=== PATIENT | female | born 1975 | race Caucasian/White ===

== ENCOUNTER 2017-04-04 15:17 | Emergency (ER) | payer MEDICAID, OTHER, SELFPAY ==
[~2017-04-04] VITALS: Ht 172.7 cm; Wt 65.0 kg
[2017-04-04 15:20] VITALS: BP 134/85
[2017-04-04] MEDS ORDERED: SODIUM CHLORIDE 0.9% 1,000ML IVBOLUS ONE (16:30)
[2017-04-04] MEDS ORDERED: KETOROLAC 30 MG/1 ML IVPush ONE (16:30)
[2017-04-04] MEDS ORDERED: METOCLOPRAMIDE 5 MG/ML, 2ML IVPush ONE (16:30)
[2017-04-04] MEDS ORDERED: SODIUM CHLORIDE FLUSH 10ML SYR IVF ONE (16:30)
[2017-04-04] MEDS ORDERED: KETOROLAC 30 MG/1 ML ONE (16:32)
[2017-04-04] MEDS ORDERED: METOCLOPRAMIDE 5 MG/ML, 2ML ONE (16:32)
[2017-04-04 16:37] LABS: HEMATOCRIT 42.2 % (34.6-47.8); HEMOGLOBIN 14.1 g/dL (11.7-16.4); WHITE BLOOD COUNT 6.9 x10^3/uL (3.4-10)
[2017-04-04 16:44] LABS: BLOOD UREA NITROGEN 14 mg/dL (7-18)
== END 2017-04-04 18:38 | disposition home or self-care (01) ==
LOC: ED 18:35
DX: G44.219 Episodic tension-type headache, not intractable (principal)
CPT/HCPCS: 36415; 70450; 80048; 82040; 85025; 96361; 96374; 96375; 99285; J1885; J2765; J7030

== ENCOUNTER 2017-11-27 08:10 | Emergency (ER) | payer MEDICAID ==
[~2017-11-27] VITALS: Ht 172.7 cm; Wt 65.5 kg
[2017-11-27 08:12] VITALS: BP 113/72
== END 2017-11-27 09:37 | disposition home or self-care (01) ==
LOC: ED 09:31
DX: S39.012A Strain of muscle, fascia and tendon of lower back, initial encounter (principal); X58.XXXA Exposure to other specified factors, initial encounter; Y93.89 Activity, other specified; Y99.8 Other external cause status; Y92.89 Other specified places as the place of occurrence of the external cause
CPT/HCPCS: 99283

== ENCOUNTER 2018-04-03 18:53 | Emergency (ER) | payer MEDICAID ==
[~2018-04-03] VITALS: Ht 172.7 cm; Wt 68.2 kg
[2018-04-03] MEDS ORDERED: MELO15TA24 PO (19:34)
[2018-04-03] MEDS ORDERED: GABA300C10 PO (19:34)
[2018-04-03] MEDS ORDERED: TIZA4TAB PO (19:34)
[2018-04-03 20:17] LABS: ALBUMIN 3.8 g/dL (3.4-5.0); ANION GAP 9 mmol/L (5-15); CALCIUM 8.3 mg/dL (8.5-10.1); CHLORIDE 110 mmol/L (98-107); CREATININE 0.73 mg/dL (0.55-1.02)
[2018-04-03 20:42] LABS: BASOPHILS # (AUTO) 0.09 x10^3/uL (0-0.1); BASOPHILS % (AUTO) 1 % (0-1); EOSINOPHILS # (AUTO) 0.02 x10^3/uL (0-0.4); EOSINOPHILS % (AUTO) 0 % (1-7); LYMPHOCYTES # (AUTO) 2.38 x10^3/uL (1-3.4); LYMPHOCYTES % (AUTO) 33 % (22-44); MD NO; MEAN CORPUSCULAR HEMOGLOBIN 31.1 pg (27.0-34.8); MEAN CORPUSCULAR HGB CONC 34.1 g/dL (32.4-35.8); MEAN CORPUSCULAR VOLUME 91.2 fL (80-100); MEAN PLATELET VOLUME 6.7 fL (7.4-10.4); MONOCYTES # (AUTO) 0.48 x10^3/uL (0.2-0.8); MONOCYTES % (AUTO) 7 % (2-9); NEUTROPHILS # (AUTO) 4.28 x10^3/uL (1.8-6.8); NEUTROPHILS % (AUTO) 59 % (42-75); PLATELET COUNT 245 x10^3/uL (130-400); RED BLOOD COUNT 4.31 x10^6/uL (3.82-5.3); RED CELL DISTRIBUTION WIDTH 13.3 % (9.6-15.2)
[2018-04-03 21:04] VITALS: BP 107/64
== END 2018-04-03 22:00 | disposition home or self-care (01) ==
LOC: ED 21:29
DX: M51.16 Intervertebral disc disorders with radiculopathy, lumbar region (principal)
CPT/HCPCS: 36415; 72148; 80048; 82040; 85025; 99285

== ENCOUNTER 2019-02-08 16:11 | Emergency (ER) | payer MEDICAID ==
[~2019-02-08] VITALS: Ht 172.7 cm; Wt 65.2 kg
[2019-02-08 16:17] VITALS: BP 115/80
== END 2019-02-08 19:42 | disposition home or self-care (01) ==
LOC: ED 16:57
DX: K08.89 Other specified disorders of teeth and supporting structures (principal); R30.0 Dysuria; G44.209 Tension-type headache, unspecified, not intractable; Z72.9 Problem related to lifestyle, unspecified; Z75.9 Unspecified problem related to medical facilities and other health care; Z91.14 Patient's other noncompliance with medication regimen
CPT/HCPCS: 70100; 81001; 81025; 99284; J3490; Q0162

== ENCOUNTER 2019-06-18 12:58 | Outpatient (CLI) | payer MEDICAID ==
[~2019-06-18 12:58] MED LIST: GABA300C10 PO; MELO15TA24 PO; TIZA4TAB2 PO
== END 2019-06-18 23:59 | disposition home or self-care (01) ==
LOC: STAR 12:58
PROVIDERS: ATTEND Orthopaedic Surgery
DX: Z02.9 Encounter for administrative examinations, unspecified (principal)

== ENCOUNTER 2019-06-24 08:35 | Day surgery (SDC) | payer MEDICAID ==
[~2019-06-24] VITALS: Ht 172.7 cm; Wt 65.5 kg
[~2019-06-24 08:35] MED LIST changes: +BUPIVACAINE/PF 0.5% ONE; +LIDOCAINE 1%-EPI 1:100K, 20ML ONE
[2019-06-24] MEDS ORDERED: OxyconTIN ER 10 MG TAB.ER PO ONE (09:00)
[2019-06-24] MEDS ORDERED: GABAPENTIN 300 MG CAPSULE PO ONE (09:00)
[2019-06-24] MEDS ORDERED: ACETAMINOPHEN 500 MG TABLET PO ONE (09:00)
[2019-06-24] MEDS ORDERED: ACET325T14 PO (09:12)
[2019-06-24 09:15] VITALS: BP 104/71
[2019-06-24 09:32] LABS: AMPHETAMINE SCREEN, URINE Negative (Negative); BARBITURATE SCREEN, URINE Negative (Negative); BENZODIAZEPINE SCREEN, URINE Negative (Negative); CANNABINOID SCREEN, URINE Negative (Negative); COCAINE SCREEN, URINE Negative (Negative); METHADONE SCREEN, URINE Negative (Negative); OPIATE SCREEN, URINE Negative (Negative)
[2019-06-24] MEDS ORDERED: LACTATED RINGERS 1,000 ML IV SCH (10:00)
[2019-06-24] MEDS ORDERED: ACETAMINOPHEN 325 MG TABLET PO SCH (11:00)
[2019-06-24] MEDS ORDERED: VASOPRESSIN 20 UNIT/ML, 1ML ONE (11:03)
[2019-06-24] MEDS ORDERED: BUPIVACAINE/PF 0.5% ONE ×2 (11:26→11:27)
[2019-06-24] MEDS ORDERED: ONDANSETRON 2MG/ML, 2ML ONE (11:27)
[2019-06-24] MEDS ORDERED: EPINEPHRINE 1 MG/ML, 1ML ONE (11:27)
[2019-06-24] MEDS ORDERED: CEFAZOLIN 1,000 MG ONE (11:27)
[2019-06-24] MEDS ORDERED: DEXAMETHASONE 4 MG/ML, 1ML ONE (11:27)
[2019-06-24] MEDS ORDERED: PROPOFOL 10 MG/ML, 20ML ONE (11:27)
[2019-06-24] MEDS ORDERED: LIDOCAINE-MPF 2% ,5ML ONE (11:27)
[2019-06-24] MEDS ORDERED: PHENYLEPHRINE 10 MG/ML ONE (11:27)
[2019-06-24] MEDS ORDERED: hydrALAzine 20 MG/ML, 1ML IV PRN (11:30)
[2019-06-24] MEDS ORDERED: FENTANYL PF 100 MCG/2ML IV PRN (11:30)
[2019-06-24] MEDS ORDERED: HYDROmorphone 2 MG/ML, 1ML IVPush PRN (11:30)
[2019-06-24] MEDS ORDERED: DIAZEPAM 5 MG/ML, 2ML IVPush PRN (11:30)
[2019-06-24] MEDS ORDERED: MEPERIDINE/PF 25MG/ML,1ML IVPush PRN (11:30)
[2019-06-24] MEDS ORDERED: OXYcodone 5 MG/5 ML ORAL.SOL UDC PO PRN (11:30)
[2019-06-24] MEDS ORDERED: METOPROLOL 1 MG/ML, 5ML IV PRN (11:30)
[2019-06-24] MEDS ORDERED: PROMETHAZINE 25 MG/ML, 1ML IV PRN (11:30)
[2019-06-24] MEDS ORDERED: MIDAZOLAM 1 MG/ML, 2ML IV PRN (11:30)
[2019-06-24] MEDS ORDERED: ALBUTEROL/IPRATROPIUM 2.5MG/0.5MG, 3 ML NPPB PRN (11:30)
[2019-06-24] MEDS ORDERED: GABAPENTIN 300 MG CAPSULE PO SCH (16:00)
[2019-06-25] MEDS ORDERED: MELOXICAM 15 MG TABLET PO SCH (09:00)
== END 2019-06-24 14:20 | disposition home or self-care (01) ==
LOC: OUT 08:35
PROVIDERS: ATTEND Orthopaedic Surgery
DX: M22.02 Recurrent dislocation of patella, left knee (principal); M22.2X2 Patellofemoral disorders, left knee; M94.8X6 Other specified disorders of cartilage, lower leg; M94.262 Chondromalacia, left knee; M19.90 Unspecified osteoarthritis, unspecified site; F32.9 Major depressive disorder, single episode, unspecified; F15.20 Other stimulant dependence, uncomplicated; Z79.1 Long term (current) use of non-steroidal anti-inflammatories (NSAID); Z79.899 Other long term (current) drug therapy; Z87.891 Personal history of nicotine dependence; Z88.0 Allergy status to penicillin; Z82.61 Family history of arthritis
CPT/HCPCS: 27418; 29873; 29879; 64445; 64447; 73560; 80307; 81025; C1713; J0171; J0690; J1100; J2370; J2405; J2704; J3490; J7120; 76000

== ENCOUNTER 2019-09-21 22:53 | Emergency (ER) | payer MEDICAID ==
[~2019-09-21] VITALS: Ht 172.7 cm; Wt 71.6 kg
[~2019-09-21 22:53] MED LIST changes: +ACET325T14 PO; -BUPIVACAINE/PF 0.5% ONE; -LIDOCAINE 1%-EPI 1:100K, 20ML ONE
[2019-09-21 23:04] VITALS: BP 128/71
== END 2019-09-21 23:43 | disposition home or self-care (01) ==
LOC: ED 23:35
DX: J01.00 Acute maxillary sinusitis, unspecified (principal); B96.89 Other specified bacterial agents as the cause of diseases classified elsewhere
CPT/HCPCS: 99283